=== PATIENT | female | born 1995 | race Caucasian/White ===

== ENCOUNTER 2017-04-28 15:19 | Inpatient (IN) | payer BC, OTHER ==
[2017-04-28 15:40] LABS: Hematocrit 27.6 % (37.0-47.0); Hemoglobin 9.1 gm/dL (12.5-16.0); Mean Cell Volume 87.6 fl (78-100); Mean Corpuscular Hemoglobin 28.9 pg (27-31); Mean Platelet Volume 13.2 fl (6.0-9.5); Neutrophil # 5.3 K/mm3 (1.3-6.0); Neutrophil % 69.6 % (42-75.0); Platelet Count 130 K/mm3 (150-450); Red Blood Count 3.15 M/mm3 (4.2-5.4); Red Cell Distribution Width 14.4 % (11.5-14.0); White Blood Count 7.6 K/mm3 (4.0-10.5)
[2017-04-28 15:53] LABS: Albumin * 2.1 gm/dl (3.4-5.0); BUN/Creatinine Ratio 9.7 (9.0-21.6); Bilirubin, Total 0.2 mg/dL (0.0-1.1); Ca. Corrected For Albumin 9.4 mg/dL (8.4-10.2); Calcium * 8.2 mg/dL (7.9-10.9); Carbon Dioxide 25.5 mmol/L (24-32.6); Potassium 3.5 mmol/L (3.4-4.6); Total Protein 5.9 gm/dL (6.2-8.2)
[2017-04-28] MEDS ORDERED: RINGER'S SOLUTION,LACTATED 1,000 ML IV PRN ×2 (16:07)
[2017-04-28] MEDS ORDERED: ceFAZolin SODIUM/DEXTROSE,ISO 2 GM/50 ML BAG IV ONE (16:07)
[2017-04-28] MEDS ORDERED: OXYTOCIN 20 UNITS in RINGER'S SOLUTION,LACTATED 1,000 ML IV ONE (16:07)
[2017-04-28] MEDS ORDERED: TERBUTALINE SULFATE 1 MG/ML VIAL SC ONE (17:22)
[2017-04-28] MEDS ORDERED: RINGER'S SOLUTION,LACTATED 1,000 ML IV ONE ×2 (17:30→19:00)
[2017-04-28] MEDS ORDERED: BISACODYL 10 MG SUPP.RECT RC PRN (19:00)
[2017-04-28] MEDS ORDERED: KETOROLAC TROMETHAMINE 30 MG/ML VIAL IV PRN (19:00)
[2017-04-28] MEDS ORDERED: SENNOSIDES 8.6 MG TABLET PO PRN (19:00)
[2017-04-28] MEDS ORDERED: SIMETHICONE 80 MG TAB.CHEW PO PRN (19:00)
[2017-04-28] MEDS ORDERED: ONDANSETRON HCL/PF 2 MG/ML VIAL IV PRN (19:00)
--- NOTE | 2017-04-28 19:00 | OR ---
Operative Report - Dictated Report Narrative: DATE OF PROCEDURE: 04/28/2017 PROCEDURE: 1. Primary low transverse section ANESTHESIA: Spinal PREOPERATIVE DIAGNOSES: 1. Intrauterine at 37 1/7 weeks 2. Mild preeclampsia 3. Breech presentation, failed ECV yesterday 4. Hypothyroidism 5. Anemia POSTOPERATIVE DIAGNOSES: 1. Intrauterine at 37 1/7 weeks 2. Mild preeclampsia 3. Breech presentation, failed ECV yesterday 4. Hypothyroidism 5. Anemia SURGEON: Ava Otto M.D. ADVANCED REGISTERED NURSE: Franc FINDINGS: 1. Male infant in santy breech presentation. Clear amniotic fluid. Weight 2735 g, 8/8, Time of delivery: 17:51 2. Normal uterus, and normal bilateral ovaries and tubes SPECIMENS: placenta DRAIN: Aguila to gravity. URINE OUTPUT: 150 ml. BLOOD LOSS: 300 ml. IV FLUIDS: 1500 ml COMPLICATIONS: None. Description of Operative Procedure: The patient consented prior to the operation and was taken to the operating room. Spinal anesthesia was performed without complications. The patient was then placed in the dorsal supine position with leftward tilt. Sequential compression device was placed on the lower extremities and a Aguila catheter was inserted into the bladder. Two grams of Ancef was given at time of the start of the spinal anesthesia. The abdomen was prepped with Chloraprep and draped in the usual sterile fashion. A time-out procedure was conducted to confirm the correct patient for the correct procedure. Anesthesia was tested and it was adequate. A Pfannenstiel incision was marked and then made with a scalpel. The incision was carried through the subcutaneous layer to the fascia. The fascia was nicked at the midline and extended bilaterally with Petty scissors. The upper edge of the fascia incision was grasped with two West clamps, elevated and dissected off from the rectus muscles. The West clamps were repositioned to the lower edge of the fascia incision, which was tented up and dissected off from the rectus muscles. The rectus muscles were in the midline. The peritoneum was entered bluntly with a finger. The peritoneal incision was extended superiorly and inferiorly with good visualization of the bladder. A bladder blade was inserted. The vesicouterine peritoneum was identified, grasped with a pick-ups, and entered sharply with Matzenbaum scissors. The incision was extended laterally, and a bladder flap was created. The bladder blade was repositioned. The lower uterine segment was incised in a transverse fashion with the scalpel, and the incision was extended laterally by stretching. The amniotic sac was ruptured with clear fluid, The bladder blade was removed. The baby was in breech presentation. Fundal pressure was applied while the buttock was elevated through the incision. The buttock was delivered with fundal pressure and the downward pull of the buttock through my index fingers hooked around the inguinal area. Baby was turned sacral anterior. Legs were delivered and the arms swiped across the chest and delivered. Head delivered without difficulty. The cord was clamped and cut after about 30 sec of life. The infant was handed off to the nurse/ped in attendance. Cord blood was obtained. The placenta was removed manually. The uterus was exteriorized, and cleared off clots and membrane. The uterine incision was closed with 0 vicryl in a running lock fashion. A second imbricating layer was placed with 2- 0 Vicryl. Good hemostasis was obtained. The posterior cul-de-sac was cleared off clots and fluid. The uterus was returned to the abdomen. The gutters were cleared off blood clots and fluid. The peritoneum was closed with 2-0 Vicryl. The lower portion of the rectus muscle was brought together with two figure of eight to cover the bladder. The fascia was reapproximated with #1 Vicryl in running fashion. The subcutaneous layer was irrigated with saline. The subcutaneous adipose layer was closed with 2-0 vicryl interruptedly. The skin was closed with 3-0 Monocryl suture in a subcuticular fashion. Benzoin was applied to incision edge. The incision was covered with Steri strips, then with Telfa, ABD and pressure dressing tape. The patient tolerated the procedure well. Sponge, lap, needle and instrument counts were correct. The patient was taken to the recovery room in stable condition. Ava Otto MD History for MU Definition: * The number of deliveries resulting in a live the patient experienced prior to current hospitalization * The previous delivery of live twins or any live multiple gestation is considered one live event. *If primagravida or nulliparous is documented select zero for the number of previous live births. Live Events: 0
--- NOTE | 2017-04-28 19:23 | OR ---
Anesthesia Procedure Note - Anesthesia Procedure Note Narrative: Vital Signs - Last Taken Temp 36.4 C L 04/28/17 19:16 Pulse 76 04/28/17 19:16 Resp 16 04/28/17 19:16 BP 139/74 04/28/17 19:16 Pulse Ox 98 04/28/17 19:16 O2 Oxygen Delivery Method Room Air 04/28/17 19:19 ANESTHESIA PROCEDURE NOTE Date of procedure: 04/28/2017. Time of procedure: 1900. Performed by: Hang Owusu CRNA [employer] Supervisor: Yajaira Vizcaino RN . Preprocedure diagnosis: for breech presentation. Desire for postoperative analgesia Post procedure diagnosis: Same. Procedure: Bilateral tap block Indications: Postoperative analgesia. Status post . Findings: Patient placed in a supine position in PACU. The right lateral abdominal wall prepped with ChloraPrep. Ultrasound used to identify fascial layer between internal oblique and transabdominal muscle. 22-gauge 2 inch Stimuplex regional block needle was advanced under ultrasound guidance into this fascial layer. 20 mL of 0.25% Marcaine with epinephrine 1: 200,000 was injected. Regional block needle was removed intact. Procedure was repeated on patient's left side. EBL: Minimal. Fluids: N/A. Specimen: N/A. Post procedure condition: The patient tolerated the procedure well. No complications were noted. Thank you for this consultation Hang Owusu CRNA
[2017-04-28] MEDS ORDERED: hydrOXYzine PAMOATE 25 MG CAPSULE PO PRN (21:05)
[2017-04-28] MEDS: DOCUSATE SODIUM 100 MG CAPSULE PO SCH (21:32)
[2017-04-28] MEDS: oxyCODONE HCL/ACETAMINOPHEN 1 TAB TABLET PO PRN (21:33)
[2017-04-29] MEDS: oxyCODONE HCL/ACETAMINOPHEN 1 TAB TABLET PO PRN ×5 (00:33→21:21)
[2017-04-29 06:09] LABS: Hematocrit 24.4 % (37.0-47.0); Mean Cell Volume 88.4 fl (78-100); Mean Corpuscular Hgb Conc 32.8 g/dl (32-36); Mean Platelet Volume 13.5 fl (6.0-9.5); Neutrophil # 9.6 K/mm3 (1.3-6.0); Neutrophil % 76.7 % (42-75.0); Platelet Count 124 K/mm3 (150-450); Red Blood Count 2.76 M/mm3 (4.2-5.4); Red Cell Distribution Width 14.5 % (11.5-14.0); White Blood Count 12.5 K/mm3 (4.0-10.5)
[2017-04-29 06:19] LABS: Albumin * 1.9 gm/dl (3.4-5.0); Anion Gap 11.2 mmol/L (6.8-13.8); BUN/Creatinine Ratio 9.1 (9.0-21.6); Bilirubin, Total 0.4 mg/dL (0.0-1.1); Ca. Corrected For Albumin 9.4 mg/dL (8.4-10.2); Carbon Dioxide 26.6 mmol/L (24-32.6); Potassium 3.8 mmol/L (3.4-4.6); Total Protein 5.4 gm/dL (6.2-8.2)
[2017-04-29] MEDS: LEVOTHYROXINE SODIUM 50 MCG TABLET PO SCH (07:59)
[2017-04-29] MEDS: DOCUSATE SODIUM 100 MG CAPSULE PO SCH ×2 (07:59→21:20)
[2017-04-29] MEDS: FERROUS SULFATE 325 MG TABLET PO SCH ×2 (08:01→21:20)
--- NOTE | 2017-04-29 11:37 | PN ---
Subjective - Date and Time Seen Date: 04/29/17 Subjective Narrative: post op day 1, s/p primary c/s for breech and mild preeclampsia. no complaints. no headache or blurry vision. bottle feeding. pain controlled. monsivais removed, not voided yet. normal lochia. Objective - Vitals Vitals: Last Vital Signs Temp 37.3 C 04/29/17 07:25 Pulse 89 04/29/17 07:25 Resp 16 04/29/17 07:25 BP 135/89 04/29/17 08:00 Pulse Ox 99 04/29/17 07:25 - Abnormal Lab Findings Abnormal Lab Findings: Abnormal Lab Results 04/28/17 04/28/17 04/29/17 Range/Units 15:35 15:35 06:00 WBC 12.5 H D (4.0-10.5) K/mm3 RBC 3.15 L 2.76 L (4.2-5.4) M/mm3 Hgb 9.1 L 8.0 L (12.5-16.0) gm/dL Hct 27.6 L 24.4 L (37.0-47.0) % RDW 14.4 H 14.5 H (11.5-14.0) % Plt Count 130 L 124 L (150-450) K/mm3 MPV 13.2 H 13.5 H (6.0-9.5) fl Immature Gran % (Auto) 0.70 H 0.50 H (0.001-0.429) % Immature Gran # (Auto) 0.05 H 0.06 H (0.000-0.0310) K/mm3 Neutrophils % 76.7 H (42-75.0) % Lymphocytes % 16.2 L (20-51) % Neutrophils # 9.6 H (1.3-6.0) K/mm3 ALT 17 L (19-67) U/L Total Protein 5.9 L (6.2-8.2) gm/dL Albumin 2.1 L (3.4-5.0) gm/dl 04/29/17 Range/Units 06:00 WBC (4.0-10.5) K/mm3 RBC (4.2-5.4) M/mm3 Hgb (12.5-16.0) gm/dL Hct (37.0-47.0) % RDW (11.5-14.0) % Plt Count (150-450) K/mm3 MPV (6.0-9.5) fl Immature Gran % (Auto) (0.001-0.429) % Immature Gran # (Auto) (0.000-0.0310) K/mm3 Neutrophils % (42-75.0) % Lymphocytes % (20-51) % Neutrophils # (1.3-6.0) K/mm3 ALT 13 L (19-67) U/L Total Protein 5.4 L (6.2-8.2) gm/dL Albumin 1.9 L (3.4-5.0) gm/dl - Exam Constitutional: Present: Alert, Oriented x3, Cooperative Respiratory: Present: no respiratory distress Abdomen: Present: Normal bowel sounds, soft, nondistended, other - fundus at umbilicus. incision dry and clean. Extremity: Present: normal range of motion, no calf tenderness, pedal edema Skin Exam: Present: warm/dry, no cyanosis, pallor Neurologic: Present: other - DTR: 2+ bilaterally Appearance: Present: appropriate appearance Eye contact: Present: cooperative, good eye contact, normal speech Cauti Physician Documentation - Urinary Catheter Management Urethral (Monsivais) Date of Insertion: 04/28/17 Time of Insertion: 17:15 Date of Removal: 04/29/17 Time of Removal: 09:02 Assessment/Plan Plan Narrative: A: post op day 1, s/p primary c/s with mild preelcampsia, BP mildly elevated with some normal, asymptomatic. Plan: routine post op care. no magnesium sulphate if BP mild and no symptoms. ambulation encouraged. Ava Otto MD
[2017-04-29] MEDS: IBUPROFEN 800 MG TABLET PO PRN ×2 (12:10→21:20)
[2017-04-30] MEDS: oxyCODONE HCL/ACETAMINOPHEN 1 TAB TABLET PO PRN ×2 (04:50→17:13)
[2017-04-30] MEDS: IBUPROFEN 800 MG TABLET PO PRN ×2 (04:50→17:13)
[2017-04-30] MEDS: LEVOTHYROXINE SODIUM 50 MCG TABLET PO SCH (08:20)
[2017-04-30] MEDS: FERROUS SULFATE 325 MG TABLET PO SCH ×2 (08:20→21:16)
[2017-04-30] MEDS: DOCUSATE SODIUM 100 MG CAPSULE PO SCH ×2 (08:20→21:16)
[2017-04-30] MEDS ORDERED: FLU VACC QS2017-18(6MOS UP)/PF 60 MCG/0.5 ML SYRINGE IM ONE (09:00)
--- NOTE | 2017-04-30 10:35 | PN ---
Subjective - Date and Time Seen Date: 04/30/17 Subjective Narrative: Post op day 2, s/p primary c/s for breech and preeclampsia. no complaints. doing well. BP returned to normal today. breast feeding. ambulating and eating well. pain controlled. lochia small. Objective - Vitals Vitals: Last Vital Signs Temp 36.9 C 04/30/17 08:30 Pulse 71 04/30/17 08:30 Resp 18 04/30/17 08:30 BP 135/80 04/30/17 08:30 Pulse Ox 97 04/30/17 08:30 - Exam Constitutional: Present: Alert, Oriented x3, Cooperative Abdomen: Present: soft, nondistended, other - fundus below unbilicus and non- tender. incision dry and clean. Extremity: Present: normal range of motion, no calf tenderness, pedal edema - trace Skin Exam: Present: normal color, warm/dry, no cyanosis Appearance: Present: appropriate appearance Eye contact: Present: cooperative, good eye contact, normal speech Cauti Physician Documentation - Urinary Catheter Management Urethral (Aguila) Date of Insertion: 04/28/17 Time of Insertion: 17:15 Date of Removal: 04/29/17 Time of Removal: 09:02 Assessment/Plan Plan Narrative: A: POD#2, s/p primary c/s for breech and preeclamspsia, BP returned to normal now and no symptoms. Plan: routine post op and care. ambulation encouraged. Ava Otto MD
[2017-04-30] MEDS ORDERED: HYDROCORTISONE 30 APPL TUBE TP PRN (11:59)
[2017-05-01] MEDS: LEVOTHYROXINE SODIUM 50 MCG TABLET PO SCH (07:07)
[2017-05-01] MEDS: oxyCODONE HCL/ACETAMINOPHEN 1 TAB TABLET PO PRN (07:14)
[2017-05-01] MEDS: IBUPROFEN 800 MG TABLET PO PRN (07:15)
--- NOTE | 2017-05-01 12:56 | PN ---
Subjective - Date and Time Seen Date: 05/01/17 Subjective Narrative: post op day 3, s/p primary c/s for breech and mild preeclampsia. BP today is elevated in the mild range. denies symptoms. breast feeding. normal lochia. Objective - Vitals Vitals: Last Vital Signs Temp 36.8 C 05/01/17 07:00 Pulse 80 05/01/17 07:00 Resp 16 05/01/17 07:00 BP 142/84 05/01/17 08:15 Pulse Ox 98 05/01/17 07:00 - Exam Constitutional: Present: Alert, Oriented x3, Cooperative Respiratory: Present: no respiratory distress Abdomen: Present: soft, nondistended, other - fundus firm and below umbilicus. incision dry and clean. Extremity: Present: normal range of motion, no calf tenderness, pedal edema - trace Skin Exam: Present: warm/dry, no cyanosis, pallor Appearance: Present: appropriate appearance Eye contact: Present: cooperative, good eye contact, normal speech Cauti Physician Documentation - Urinary Catheter Management Urethral (Aguila) Date of Insertion: 04/28/17 Time of Insertion: 17:15 Date of Removal: 04/29/17 Time of Removal: 09:02 Assessment/Plan Plan Narrative: A: POD#3, s/p primary c/s for breech with mild preeclampsia, BP mildly elevated , no symptoms. Plan; will discharge home today. follow up one week in clinic for BP check. Ava Otto MD
[2017-05-01] MEDS: FERROUS SULFATE 325 MG TABLET PO SCH (14:00)
[2017-05-01] MEDS: DOCUSATE SODIUM 100 MG CAPSULE PO SCH (14:00)
[2017-05-01 14:45] VITALS: BP 140/86
== END 2017-05-01 15:45 | disposition home or self-care (01) | DRG 766 ==
LOC: OBCLINIC 15:19 → OB 16:06
PROVIDERS: ADMIT Obstetrics & Gynecology; ATTEND Obstetrics & Gynecology
PROC: 4A1HXCZ Monitoring of Products of Conception, Cardiac Rate, External Approach (ICD-10-PCS; 2017-04-28)
PROC: 10D00Z1 Extraction of Products of Conception, Low, Open Approach (ICD-10-PCS; principal; 2017-04-28 17:00)
DX: O14.04 Mild to moderate pre-eclampsia, complicating childbirth (principal); O32.1XX0 Maternal care for breech presentation, not applicable or unspecified; O99.284 Endocrine, nutritional and metabolic diseases complicating childbirth; E03.9 Hypothyroidism, unspecified; O99.02 Anemia complicating childbirth; D64.9 Anemia, unspecified; Z3A.37 37 weeks gestation of pregnancy; Z37.0 Single live birth; Z23 Encounter for immunization
CPT/HCPCS: 36415; 59025; 59510; 80053; 85025; 88307; 90686; G0008